=== PATIENT | female | born 1950 | race Caucasian/White ===

== ENCOUNTER → 2017-02-13 | Outpatient (CLI) | payer OTHER, MEDICARE | LOC: BMCIMAGING 11:59 | PROVIDERS: ATTEND Internal Medicine | DX: Z12.31 Encounter for screening mammogram for malignant neoplasm of breast (principal) | CPT/HCPCS: G0202 ==

== ENCOUNTER → 2017-02-17 | Outpatient (CLI) | payer OTHER, MEDICARE | LOC: BMCIMAGING 11:05 | PROVIDERS: ATTEND Internal Medicine | DX: M85.80 Other specified disorders of bone density and structure, unspecified site (principal) ==

== ENCOUNTER → 2018-01-24 | Outpatient (CLI) | payer OTHER, MEDICARE ==
[2018-01-24 17:13] LABS: PLATELET COUNT 287 10^3/uL (150-400)
== END ==
LOC: EDSTATUS 10:18 → FLAB 16:30 → FIMAGING 16:30
PROVIDERS: ATTEND Internal Medicine
DX: R10.9 Unspecified abdominal pain (principal)
CPT/HCPCS: 74177; Q9967; 82565-PO

== ENCOUNTER → 2018-01-24 | Outpatient (CLI) | payer OTHER, MEDICARE ==
[~2018-01-24] MED LIST: IOPAMIDOL (ISOVUE-300) 100 ML BTL ONE
== END ==
LOC: FIMAGING 16:21
PROVIDERS: ATTEND Internal Medicine
DX: R10.30 Lower abdominal pain, unspecified (principal); R50.9 Fever, unspecified; I87.8 Other specified disorders of veins
CPT/HCPCS: 82565-PO; Q9967

== ENCOUNTER → 2018-02-14 | Outpatient (CLI) | payer OTHER, MEDICARE | LOC: BMCIMAGING 13:05 | PROVIDERS: ATTEND Internal Medicine | DX: Z12.31 Encounter for screening mammogram for malignant neoplasm of breast (principal) ==

== ENCOUNTER → 2018-03-12 | Outpatient (CLI) | payer OTHER, MEDICARE | LOC: FIMAGING 08:54 | PROVIDERS: ATTEND Orthopaedic Surgery | DX: Z01.818 Encounter for other preprocedural examination (principal); M17.11 Unilateral primary osteoarthritis, right knee ==

== ENCOUNTER 2018-04-04 07:15 | Inpatient (IN) | payer OTHER, MEDICARE ==
--- NOTE | 2018-04-04 06:42 | PDHPUP ---
History & Physical Update H&P update statement: This history and physical update is based on an assessment of the patient which was completed after admission or registration (within 24 hours), but prior to the surgery/procedure. H&P update: H&P reviewed & patient examined, no change in patient's condition since H&P completed
[~2018-04-04 07:15] MED LIST changes: -IOPAMIDOL (ISOVUE-300) 100 ML BTL ONE; +ROPIVACAINE 0.2% 80 MG, EPINEPHrine 0.2 MG, KETOROLAC TROMETHAMINE 30 MG in SYRINGE 0 ML IU ONE; +TRANEXAMIC ACID 3,000 MG in NS (SYRINGE) 50 ML IRR ONE
[2018-04-04] MEDS ORDERED: TRANEXAMIC ACID 3,000 MG/50 ML BAG IRR ONE (09:46)
[2018-04-04] MEDS ORDERED: VANCOMYCIN 1 GM VIAL ONE (09:46)
[2018-04-04] MEDS ORDERED: ACETAMINOPHEN 325 MG TAB PO ONE (11:23)
[2018-04-04] MEDS ORDERED: ceFAZolin 2 GM/DEXTROSE 100 ML IV ONE (11:23)
[2018-04-04] MEDS ORDERED: DEXAMETHASONE 4 MG/ML VIAL IVP ONE (11:23)
[2018-04-04] MEDS ORDERED: FAMOTIDINE 20 MG TAB PO ONE (11:23)
[2018-04-04] MEDS ORDERED: LR 1,000 ML IV ONE (11:24)
[2018-04-04] MEDS ORDERED: LIDOCAINE 1% 2 ML INJ ID ONE (12:33)
[2018-04-04] MEDS ORDERED: PROPOFOL/EMULSION 500 MG/50 ML BOTTLE IV ONE (13:11)
[2018-04-04] MEDS ORDERED: ONDANSETRON 4 MG/2 ML VIAL IVP PRN ×2 (13:29→14:23)
[2018-04-04] MEDS ORDERED: DICYCLOMINE 20 MG TAB PO PRN (13:29)
[2018-04-04] MEDS ORDERED: ALBUTEROL 3 ML DEYVIAL IH PRN (13:29)
[2018-04-04] MEDS ORDERED: NALOXONE HCL 0.4 MG/ML INJ IVP PRN (13:29)
[2018-04-04] MEDS ORDERED: fentaNYL 100 MCG/2 ML INJ IVP PRN (13:29)
--- NOTE | 2018-04-04 13:29 | PDANEPAE ---
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 - Pulmonary History Hx COPD: No Hx Asthma/Reactive Airway Disease: No Hx Recent Upper Respiratory Infection: No Hx Oxygen in Use at Home: No Hx Sleep Apnea: No Sleep Apnea Screening Result - Last Documented: Negative - Neurologic History Hx Cerebrovascular Accident: No Hx Seizures: No Hx Dementia: No - Endocrine History Hx Diabetes: No - Renal History Hx Renal Disorders: No - Liver History Hx Hepatic Disorders: No - Neurological & Psychiatric Hx Hx Neurological and Psychiatric Disorders: Yes Neurological / Psychiatric History Comment: mild depression - Cancer History Hx Cancer: No - Congenital Disorder History Hx Congenital Disorders: No - GI History Hx Gastrointestinal Disorders: No - Other Health History Other Health History: wears glasses for reading - Chronic Pain History Chronic Pain: No - Surgical History Prior Surgeries: PPM placement 2010. ankle fusion 2006. meniscus repair, can' t recall which side ANE Review of Systems Review of Systems: - Exercise capacity METS (RN): 4 METS - Pacemaker Pacemaker Type: Permanent Pacer/Defib Pacemaker Tail Sawyer: KardiumroniNonabox Pacemaker Model: Silvio JAVED Pacemaker Mode: DDD-CLS Pacemaker Set Rate: 55 Date Pacemaker Last Checked: 10/26/17 ANE Patient History - Allergies Allergies/Adverse Reactions: Sulfa (Sulfonamide Antibiotics) Allergy (Verified 02/26/18 11:51) Rash - Home Medications Home Medications: Calcium Carb W/Vit D [Calcium Carb W/Vit D 500/200 (*)] 500 mg PO BID 02/19/18 [ Last Taken 04/21/17] Dicyclomine [Bentyl 20 MG (*)] 20 mg PO DAILY PRN 02/19/18 [Last Taken 04/21/17] Escitalopram Oxalate [Lexapro] 10 mg PO DAILY 02/19/18 [Last Taken 04/04/18 05: 00] Estradiol [Estrace Vaginal (*)] 1 alexi VG Q3D 02/19/18 [Last Taken 03/26/18] Herbals/Supplements -Info Only 1 ea PO DAILY 02/19/18 [Last Taken 04/21/17] Magnesium Hydroxide [Milk of Magnesia] 30 ml PO DAILY 02/19/18 [Last Taken 04/21] Testosterone [ANDROGEL 1% 5gm pkt (*)] 5 gm TD Q3D 02/19/18 [Last Taken 03/26/18 ] - NPO status NPO Since - Liquids (Date): 04/04/18 NPO Since - Liquids (Time): 05:00 NPO Since - Solids (Date): 04/03/18 NPO Since - Solids (Time): 16:00 - Smoking Hx Smoking Status: Never smoked - Family Anes Hx Family Hx Anesthesia Complications: none ANE Labs/Vital Signs - Vital Signs Blood Pressure: 126/84 Heart Rate: 59 Respiratory Rate: 14 O2 Sat (%): 97 Height: 162.56 cm Weight: 48.988 kg ANE Physical Exam - Airway Neck exam: FROM Mallampati Score: Class 2 - Pulmonary Pulmonary: no respiratory distress - Cardiovascular Cardiovascular: regular rate and rhythym - ASA Status ASA Status: III (heart block) ANE Anesthesia Plan Anesthesia Plan: spinal Regional Anesthesia: single shot NB
[2018-04-04] MEDS ORDERED: MAGNESIUM HYDROXIDE 30 ML UDCUP PO PRN (14:23)
[2018-04-04] MEDS ORDERED: BISACODYL 10 MG SUPP PR PRN (14:23)
[2018-04-04] MEDS ORDERED: CYCLOBENZAPRINE 10 MG TAB PO PRN (14:23)
[2018-04-04] MEDS ORDERED: oxyCODONE IR 5 MG TAB PO PRN (14:23)
[2018-04-04] MEDS ORDERED: PROMETHAZINE HCL 25 MG/ML INJ IVP PRN (14:23)
[2018-04-04] MEDS ORDERED: METOCLOPRAMIDE 10 MG/2 ML VIAL IVP PRN (14:23)
[2018-04-04] MEDS ORDERED: POLYETHYLENE GLYCOL 3350 17 GM PKT PO PRN (14:23)
[2018-04-04] MEDS ORDERED: TEMAZEPAM 15 MG CAP PO PRN (14:23)
[2018-04-04] MEDS ORDERED: DIPHENOXYLATE/ATROPINE LOMOTIL 1 TAB PO PRN (14:23)
[2018-04-04] MEDS ORDERED: PROMETHAZINE HCL 25 MG SUPPR PR PRN (14:23)
[2018-04-04] MEDS ORDERED: diphenhydrAMINE 25 MG CAP PO PRN (14:23)
[2018-04-04] MEDS ORDERED: LACTULOSE 20 GM/30 ML UDCUP PO PRN (14:23)
[2018-04-04] MEDS ORDERED: ONDANSETRON DISINTEGRATING 4 MG TAB PO PRN (14:23)
--- NOTE | 2018-04-04 14:23 | POSTOPPROG ---
Post Op Note Date of Operation: 04/04/18 Surgeon: Maya Boone Chemical Analytical Sampler: danni boone PA-C Anesthesiologist: DR. yates Anesthesia: Spinal, Other (Specify) (adductor canal block) Pre-op Diagnosis: right knee OA Post-op Diagnosis: same Indication: right knee pain Procedure: R TKA Findings: severe knee OA Inf/Abcess present in the surg proc area at time of surgery?: No EBL: 50-100
[2018-04-04] MEDS ORDERED: LR 1,000 ML IV SCH (14:30)
--- NOTE | 2018-04-04 15:10 | PDMN ---
Medical Necessity Medical necessity: Pt meets IP criteria as of 04/04/18 per PA; est los > 2 mn s/ p TKA CPT 68882. Pt with hx of pacemaker due to third degree heart block and depression requiring further post op monitoring
[2018-04-04] MEDS: ACETAMINOPHEN 325 MG TAB PO SCH (17:43)
[2018-04-04] MEDS: ceFAZolin 2 GM/DEXTROSE 100 ML IV SCH (20:42)
[2018-04-04] MEDS: FAMOTIDINE 20 MG TAB PO SCH (20:43)
[2018-04-04] MEDS: ASPIRIN 81 MG CHEWABLE TAB PO SCH (20:43)
[2018-04-04] MEDS: SENNOSIDES/DOCUSATE SODIUM TAB PO SCH (20:43)
[2018-04-05] MEDS: ACETAMINOPHEN 325 MG TAB PO SCH ×2 (00:14→05:00)
[2018-04-05] MEDS: ceFAZolin 2 GM/DEXTROSE 100 ML IV SCH (04:59)
[2018-04-05 07:38] VITALS: BP 113/72
[2018-04-05] MEDS: FAMOTIDINE 20 MG TAB PO SCH (08:21)
[2018-04-05] MEDS: ASPIRIN 81 MG CHEWABLE TAB PO SCH (08:21)
[2018-04-05] MEDS: SENNOSIDES/DOCUSATE SODIUM TAB PO SCH (08:21)
--- NOTE | 2018-04-05 08:36 | SOAPPROG ---
SOAP Progress Note Assessment/Plan: Assessment: Patient is doing well POD 1 s/p R TKA Pain management: pain is well controlled on oral pain meds. VTE ppx: recommend aspirin 81 mg BID for 4 weeks, cont DAHLIA and SCDs Anemia: level is expected initially postop. Asymptomatic. Continue to monitor D/c planning: d/c to home today pending release from PT as patient has done much better postop than anticipated. No cardiac concerns. Plan: 04/05/18 08:35 Subjective: patient is doing well, mild pain ,denies SOb,chest pain and N/V Objective: Vital Signs Temp Pulse Resp BP Pulse Ox 36.8 C 59 L 17 113/72 97 04/05/18 07:37 04/05/18 07:37 04/05/18 07:37 04/05/18 07:37 04/05/18 07:37 Laboratory Results 04/05/18 04:43 04/04/18 04/05/18 04/06/18 05:59 05:59 05:59 Intake Total 3860 Output Total 2430 1000 Balance 1430 -1000 RLE; incision dressing is clean and dry, NVI, +pf/df ICD10 Worksheet Patient Problems: Problems Problem Status Onset Primary localized osteoarthritis of right knee Acute
[2018-04-05] MEDS ORDERED: ESCITALOPRAM OXALATE 10 MG TAB PO SCH (09:00)
--- NOTE | 2018-04-05 09:41 | ASMTLACE ---
TESFAYEE Length of stay for Answers: 2 days current admission Acuity / Level of Answers: Yes Care: Did the patient have an inpatient admission? # of Emergency department Answers: 0 visits in the last 6 months Social determinants Answers: Mental health diagnosis (anxiety, depression, pers onality disorders, etc.) Score: 8 Date Signed: 04/05/2018 09:40 AM Electronically Signed By:MARIA LUZ Colon
--- NOTE | 2018-04-05 10:10 | GOP ---
DATE OF OPERATION: 04/04/2018 SURGEON: Karyna Dubois MD DELIVERY REPRESENTATIVE: BUNNY Donnelly. ANESTHESIA: Spinal. PREOPERATIVE DIAGNOSIS: Right knee osteoarthritis. POSTOPERATIVE DIAGNOSIS: Right knee osteoarthritis. PROCEDURE PERFORMED: Right total knee arthroplasty. FINDINGS: ESTIMATED BLOOD LOSS: 30 cc. INDICATIONS: This is a 67-year-old female with severe and progressive pain and deformity of the righ t knee unresponsive to conservative care. Risks and benefits of the surgical intervention were expl ained in detail. DESCRIPTION OF PROCEDURE: The patient was brought to the operative room and placed on the table in t he supine position. Spinal anesthesia was induced without difficulty. A pneumatic tourniquet was ap plied about the right proximal thigh, and the leg was prepped and draped in a sterile fashion. The l eg álvarez was applied. After exsanguination by elevation the tourniquet was inflated to 250 mmHg. Incision was made anterior medial from the tibial tuberosity to a point 2 cm proximal to the superior pole of the patella. Medial parapatellar arthrotomy was carried out from the superior pole of the p atella and posteriorly in line with the fibers of the Type II VMO. The medial collateral ligament wa s elevated and the infrapatellar fat pad was resected. The patella was everted and the articular surface was excised. A 29 mm patellar button was placed. T distal femoral guide hole was drilled and the 6 degree alignment mari was placed. A 10 mm distal f emoral cut was made without difficulty. Attention was turned to the tibia and a standard 9 mm cut based on the lateral tibial condyle was per formed. The tibial articular surface was excised without difficulty. Attention was turned back to the femur and a size 4 Journey II femoral cutting block was positioned. Anterior, posterior, and chamfer cuts were made, followed by the intercondylar box cut. The knee was extended and the remnants of the medial and lateral meniscus were excised. The posterio r capsule was injected with ropivacaine, epinephrine and Toradol. A size 4 tibial tray was positione d. Trial reduction was then carried out. There was excellent range of motion, alignment, and stabil ity using the 3 to 9 mm polyethylene. All trials were then removed. The joint was thoroughly irrigated and carefully dried. Two packages of cement and 2 grams of vancomycin were mixed in the vacuum mixer and placed on the fixation surface s of all surfaces of the components. The components were implanted and all excess cement was thoroug hly removed. The permanent 9 mm polyethylene was placed without difficulty. The tourniquet was deflated and all bleeders were coagulated. The wound was thoroughly irrigated and closed using interrupted sutures of 2-0 Vicryl for the joint capsule. The subcu was closed with 3-0 Vicryl and the skin with 4-0 Monocryl. Dermabond and Steri-Strips were applied followed by a compre ssive dressing. The patient was then moved from the operating room to the recovery room in good cond ition, having tolerated the procedure well. PATHOLOGY: Severe medial patellofemoral osteoarthritis. /[id number]/MODL
== END 2018-04-05 10:44 | disposition home or self-care (01) | DRG 470 ==
LOC: F3N 10:45 → OBSVTOIN 14:25 → F3N 15:23
PROVIDERS: ADMIT Orthopaedic Surgery; ATTEND Orthopaedic Surgery
PROC: 0SRC0J9 Replacement of Right Knee Joint with Synthetic Substitute, Cemented, Open Approach (ICD-10-PCS; principal; 2018-04-04 13:00)
PROC: 0SRC0JZ Replacement of Right Knee Joint with Synthetic Substitute, Open Approach (ICD-10-PCS; principal; 2018-04-04 13:00)
DX: M17.11 Unilateral primary osteoarthritis, right knee (principal); F32.9 Major depressive disorder, single episode, unspecified; Z95.0 Presence of cardiac pacemaker
CPT/HCPCS: 97116-GP; 97161-GP; C1713; G8978-GP-CI; G8979-GP-CI; G8980-GP-CI; J0171; J0690; J1100; J1885; J2704; J2795; J3370